=== PATIENT | male | born 1945 | race Caucasian/White ===

== ENCOUNTER 2019-05-02 08:11 | Emergency (ER) | payer MEDICARE, SELFPAY ==
[2019-05-02 08:25] VITALS: BP 169/73; PULSE 68; RESP 18; TEMP 37.5; O2SAT 98
--- NOTE | 2019-05-02 08:29 | ED.GENADULT ---
HPI - General Adult General Chief complaint: Upper Respiratory Infection Stated complaint: Fever,Cough Time Seen by Provider: 05/02/19 08:29 Source: patient Mode of arrival: ambulatory Limitations: no limitations History of Present Illness HPI narrative: 73-year-old male patient presents to the [facility] with complaints of a cough and cold symptoms for the past 4 to 5 days. Patient denies any fevers that he is aware of but states that he thinks he might of been running some low-grade fevers. Patient denies any ear pain. Patient states he has had mild clear nasal discharge. Denies any sore throat. Patient states cough is worse when he is laying down at night. Patient states it is better when he is sitting up in his chair. Denies any chest pain, shortness breath, abdominal pain, nausea, vomiting or diarrhea. Patient states he has been taking [id number] cough medication which has not helped. Related Data Home Medications Medication Instructions Recorded Confirmed citalopram [Celexa] 20 mg PO DAILY 05/02/19 05/02/19 hydrochlorothiazide 12.5 mg PO DAILY 05/02/19 05/02/19 rosuvastatin 5 mg PO DAILY 05/02/19 05/02/19 Allergies Allergy/AdvReac Type Severity Reaction Status Date / Time Penicillins Allergy Mild HIVES Verified 05/02/19 08:33 SULFA Allergy Mild HIVES Uncoded 05/02/19 08:33 Review of Systems Review of Systems: Narrative: CONSTITUTIONAL: Denies fever, chills, or sweats. EYES: Denies visual changes, redness, or discharge. ENT: Positive clear rhinorrhea, congestion, denies sore throat, or otalgia. CARDIOVASCULAR: Denies chest pain, palpitations, or edema. RESPIRATORY: Positive nonproductive cough, denies dyspnea. GASTROINTESTINAL: Denies abdominal pain, nausea, vomiting, or diarrhea. GENITOURINARY: Denies dysuria or hematuria. SKIN: Denies rash or itching. MUSCULOSKELETAL: Denies back pain, joint pain, or myalgia. NEUROLOGIC: Positive headache, denies numbness, or weakness. PSYCHIATRIC: Denies anxiety or depression. [facility] Past Medical History Medical History (Updated 05/02/19 @ 08:36 by QI Oneal) Hypercholesterolemia Hypertension Social History Social History : Male Comments At the time of my signature I agree with nursing past medical history, surgical, social, and family history. There is no relevant family history pertinent to the presenting complaint. Exam Narrative: Exam Narrative: GENERAL: Well-appearing, well-nourished, and in no acute distress. HEAD: Normocephalic, atraumatic. No tenderness noted to frontal and maxillary sinuses on palpation. EYES: PERRLA and EOMI. ENT: Nares with erythema and edema noted bilaterally, no rhinorrhea or epistaxis. Mucous membranes moist. Posterior pharynx with some postnasal drip noted but no tonsil enlargement no exudates or lesions present. Bilateral TMs are clear no erythema or foreign bodies in the canal. NECK: Supple. No lymphadenopathy CHEST: Clear to auscultation. No respiratory distress. HEART: Regular rate and rhythm. No murmur heard. Normal peripheral pulses. ABDOMEN: Soft, nontender, nondistended, normal active bowel sounds. EXTREMITIES: Normal range of motion. No edema. SKIN: Warm, dry, no rash. NEURO: No focal deficits. Alert and oriented x3. Course Vital Signs Vital signs: Vital Signs Temperature 37.5 C 05/02/19 08:25 Pulse Rate 68 05/02/19 08:25 Respiratory Rate 18 05/02/19 08:25 Blood Pressure 169/73 H 05/02/19 08:25 Pulse Oximetry 98 05/02/19 08:25 Temperature 37.5 C 05/02/19 08:25 Pulse Rate 68 05/02/19 08:25 Respiratory Rate 18 05/02/19 08:25 Blood Pressure 169/73 H 05/02/19 08:25 Pulse Oximetry 98 05/02/19 08:25 Vital signs reviewed. The patient has been informed that they may have pre-hypertension or Hypertension based on a BP reading in the department. I recommend that the maeve
== END 2019-05-02 08:40 | disposition home or self-care (01) ==
PROVIDERS: Emergency Provider Nurse Practitioner Family
DX: J06.9 Acute upper respiratory infection, unspecified (principal); E78.00 Pure hypercholesterolemia, unspecified; I10 Essential (primary) hypertension
CPT/HCPCS: 99213; G0463

== ENCOUNTER → 2020-03-19 10:57 | Outpatient (CLI) | payer MEDICARE, SELFPAY ==
--- NOTE | ~2020-03-19 | CT_ITS ---
EXAMINATION: CT brain wo con EXAM DATE: 03/19/2020 11:23 INDICATION: Loss of balance. Abnormalities of gait and mobility, acute neuro deficit. TECHNIQUE: Spiral CT of the head was performed without contrast. Axial, coronal and sagittal images were reviewed. The dose-length product (DLP) for this examination was 599.57 mGy-cm. The exposure w as tailored according to patient size, and iterative reconstruction (ASIR) was used as additional dos e reduction technique. There is no prior study for comparison. FINDINGS: There is no acute intraparenchymal hemorrhage. No evidence of intraparenchymal brain mass lesion. No evidence of acute infarction. Please note that initial head CT has limited sensitivity f or small or acute infarctions. There is mild periventricular and subcortical hypodensity, nonspecific but probably related to small vessel ischemic disease. There is mild prominence of the sulci and v entricles related to cerebral atrophy. There is intracranial carotid arteriosclerosis. There are n o extra-axial collections. There is no mass effect or midline shift. The orbits are unremarkable. Soft tissue is unremarkable. The visualized sinuses and mastoid air cells are well aerated. IMPRESSION: Mild age-related findings. Reviewed, dictated and finalized at location [facility] IMPRESSION: Mild age-related findings.
== END ==
DX: R26.89 Other abnormalities of gait and mobility (principal)
CPT/HCPCS: 70450

== ENCOUNTER 2021-09-09 15:23 | Emergency (ER) | payer MEDICARE, SELFPAY ==
[2021-09-09 15:30] VITALS: BP 153/78; PULSE 51; RESP 18; TEMP 36.3; O2SAT 100
--- NOTE | 2021-09-09 16:00 | ED.BACK ---
HPI - Back Pain/Injury General Chief Complaint: Back Pain/Injury Stated Complaint: low back pain Time Seen by Provider: 09/09/21 16:00 Source: patient Mode of arrival: ambulatory Limitations: no limitations History of Present Illness HPI Narrative: 76-year-old male presented for complaint of left lower back pain for 3 days. He states it feels like muscle pain. He states he had been on a 4 byrd and repetitively looked back behind him while pulling a piece of equipment. The pain started that night. He denies associated numbness, tingling, or weakness of the lower extremity. He has not taken anything for pain. Related Data Home Medications Medication Instructions Recorded Confirmed citalopram 20 mg tablet (Celexa) 20 mg PO DAILY 05/02/19 09/09/21 hydrochlorothiazide 12.5 mg tablet 12.5 mg PO DAILY 05/02/19 09/09/21 rosuvastatin 5 mg tablet 5 mg PO DAILY 05/02/19 09/09/21 empagliflozin 10 mg tablet 10 mg PO DAILY 06/17/20 09/09/21 (Jardiance) metformin 500 mg tablet 500 mg PO BID 06/17/20 09/09/21 metoprolol succinate 50 mg 50 mg PO DAILY 06/17/20 09/09/21 tablet,extended release 24 hr sitagliptin 100 mg tablet (Januvia) 100 mg PO DAILY 06/17/20 09/09/21 omega-3 acid ethyl esters 1 gram 1 cap PO DAILY 09/09/21 09/09/21 capsule Allergies Allergy/AdvReac Type Severity Reaction Status Date / Time Penicillins Allergy Mild HIVES Verified 09/09/21 15:26 SULFA Allergy Mild HIVES Uncoded 09/09/21 15:26 Review of Systems Review of Systems: CONSTITUTIONAL: Denies body aches, fever, chills, or sweats. CARDIOVASCULAR: Denies chest pain, palpitations, or edema. RESPIRATORY: Denies cough or dyspnea. GASTROINTESTINAL: Denies abdominal pain, nausea, vomiting, or diarrhea. GENITOURINARY: Denies dysuria or hematuria. SKIN: Denies rash, itching, or wounds. MUSCULOSKELETAL: Reports back pain NEUROLOGIC: Denies headache, numbness, tingling, or weakness. All systems reviewed & are unremarkable except as noted in HPI and below PMFSH Past Medical History Medical History Hypercholesterolemia Hypertension Social History Social History Smoking status: Never smoker Alcohol intake: current Drinks per week: 4 Substance use: never Gender identity (if verbalized by the patient): Male Comments At time of signature, I have reviewed and agree with nursing past medical, surgical, social and family history unless otherwise noted. Please see nursing chart for further information. There is no relevant family history pertinent to the presenting complaint Exam Narrative: GENERAL: Well-appearing, well-nourished, and in no acute distress. CHEST: No respiratory distress. Clear to auscultation. HEART: Regular rate and rhythm. No murmur appreciated. Normal peripheral pulses. ABDOMEN: Soft, nontender, nondistended, normal active bowel sounds. MUSCULOSKELETAL: No vertebral point tenderness. 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 No edema. SKIN: Warm, dry, no rash. Capillary refill normal. Normal skin turgor. NEURO: No focal deficits. Alert and oriented x3. Gait steady. Course Course Emergency Course: Patient is aware of diagnosis, understands and agrees to treatment plan. Anticipatory guidance given. Patient agrees to follow-up as directed and is aware of reasons to seek care at the emergency department. Portions of this record may have been created with voice recognition software Level of Care: Express Care Visit Vital Signs Vital signs: Vital Signs Temperature 97.3 F L 09/09/21 15:30 Pulse Rate 51 L 09/09/21 15:30 Respiratory Rate 18 09/09/21 15:30 Blood Pressure 153/78 H 09/09/21 15:30 Pulse Oximetry 100 09/09/21 15:30 Oxygen Delivery Room Air 09/09/21 15:30 Temperature 97.3 F L 09/09/21 15:30 Pulse Rate 51 L 09/09/21 15:30 Re
== END 2021-09-09 16:12 | disposition home or self-care (01) ==
PROVIDERS: Emergency Provider Nurse Practitioner Family
DX: S39.012A Strain of muscle, fascia and tendon of lower back, initial encounter (principal); X50.3XXA Overexertion from repetitive movements, initial encounter; E78.00 Pure hypercholesterolemia, unspecified; I10 Essential (primary) hypertension
CPT/HCPCS: 99213; G0463

== ENCOUNTER 2021-10-02 10:03 | Emergency (ER) | payer MEDICARE, SELFPAY ==
[2021-10-02 10:18] VITALS: PULSE 61; RESP 18; TEMP 36.8; O2SAT 100
--- NOTE | 2021-10-02 10:27 | ED.EAR ---
HPI - Ear Problem General Chief complaint: Ear Stated complaint: right ear infected Time Seen by Provider: 10/02/21 10:27 History of Present Illness HPI Narrative: Gerry Cornelius is a 76 yo male with a PMH of high blood pressure high cholesterol, diabetes, comes with right ear draining and swelling; states this been going on for couple days has not been swimming pool Related Data Home Medications Medication Instructions Recorded Confirmed citalopram 20 mg tablet (Celexa) 20 mg PO DAILY 05/02/19 10/02/21 hydrochlorothiazide 12.5 mg tablet 12.5 mg PO DAILY 05/02/19 10/02/21 rosuvastatin 5 mg tablet 5 mg PO DAILY 05/02/19 10/02/21 empagliflozin 10 mg tablet 10 mg PO DAILY 06/17/20 10/02/21 (Jardiance) metformin 500 mg tablet 500 mg PO BID 06/17/20 10/02/21 metoprolol succinate 50 mg 50 mg PO DAILY 06/17/20 10/02/21 tablet,extended release 24 hr sitagliptin 100 mg tablet (Januvia) 100 mg PO DAILY 06/17/20 10/02/21 omega-3 acid ethyl esters 1 gram 1 cap PO DAILY 09/09/21 10/02/21 capsule Allergies Allergy/AdvReac Type Severity Reaction Status Date / Time Penicillins Allergy Mild HIVES Verified 09/09/21 15:26 SULFA Allergy Mild HIVES Uncoded 09/09/21 15:26 Review of Systems Review of Systems: CONSTITUTIONAL: Denies fever, chills, sweats. EYES: Denies visual changes, redness, discharge. ENT: Denies rhinorrhea, congestion, sore throat, right otalgia with drainage CARDIOVASCULAR: Denies chest pain, palpitations, edema. RESPIRATORY: Denies dyspnea, wheezing, cough GASTROINTESTINAL: Denies abdominal pain, nausea, vomiting, diarrhea. GENITOURINARY: Denies dysuria, hematuria, abnormal discharge SKIN: Denies rash or itching. NEUROLOGIC: Denies numbness, or focal weakness. PSYCHIATRIC: Denies anxiety or depression. [facility] Past Medical History Medical History Diabetes Hypercholesterolemia Hypertension Social History Social History (Updated 10/02/21 @ 10:32 by Zita Kc CNP) Smoking status: Former smoker Alcohol intake: current Drinks per week: 4 Substance use: never Gender identity (if verbalized by the patient): Male Comments At time of signature, I agree with nursing past medical, surgical, social and family history. There is no relevant family history pertinent to the presenting complaint. Exam Narrative: GENERAL: This is a well-nourished, well-developed patient, in mild distress. HEAD: normocephalic, atraumatic. EYES: Sclera clear/white. Vision is grossly intact. EARS: External ears normal, auditory canals clear on L, right swollen and very tender with yellow darinage, unable caro visualize TM. Hearing grossly intact. NOSE: External nose normal without nasal discharge, nares without redness, no rhinorrhea. THROAT: Mucous membranes moist, NECK: Neck supple, non-tender CARDIOVASCULAR: Regular rate and rhythm without murmurs, gallops, or rubs. RESPIRATORY: Clear to auscultation. Breath sounds equal bilaterally. No wheezes, rales, or rhonchi. GASTROINTESTINAL: Not done SKIN: warm, intact with no suspicious lesions or rash, good texture and turgor. NEURO: awake, alert, and oriented to person, place and time. There were no obvious focal neurologic abnormalities. Steady gait EXTREMITIES: Normal range of motion. BACK: Nontender without deformity Course Course Emergency Course: Patient here with right ear pain with drainage, started a few days ago has not had any swimming, has had history of cerumen in ears Right ear is swollen, tender, and draining yellow drainage unable to visualize TM started on antibiotic eardrops with steroids Can reassess here if congestion continues Level of Care: Express Care Visit Vital Signs Vital signs: Vital Signs Temperature 98.3 F 10/02/21 10:18 Pulse Rate 61 10/02/21 10:18 Respiratory Rate 18 10/02/21 10:18 Pulse Oximetry 100 10/02/21 10:18 Oxygen Delivery Room Air 10/02/21 10:18
[2021-10-02 10:33] VITALS: BP 140/82
== END 2021-10-02 10:43 | disposition home or self-care (01) ==
PROVIDERS: Emergency Provider Nurse Practitioner
DX: H66.001 Acute suppurative otitis media without spontaneous rupture of ear drum, right ear (principal); Z87.891 Personal history of nicotine dependence; E11.9 Type 2 diabetes mellitus without complications; E78.00 Pure hypercholesterolemia, unspecified; I10 Essential (primary) hypertension
CPT/HCPCS: 99213; G0463

== ENCOUNTER 2023-07-26 10:24 | Emergency (ER) | payer MEDICARE, SELFPAY ==
--- NOTE | 2023-07-26 10:55 | ED.URI ---
HPI - URI/Sore Throat General Chief Complaint: Upper Respiratory Infection Stated Complaint: Sinus/Weakness Time Seen by Provider: 07/26/23 10:54 Source: patient and RN notes reviewed Mode of arrival: ambulatory Limitations: no limitations History of Present Illness HPI Narrative: 78-year-old male presents with concern for cough, chest congestion, rib pain when coughing. Reports he gets lightheaded from cough. He reports lightheadedness when he stands up from sitting. He denies dizziness, headache, weakness in any extremity. Reports history of vertigo. He reports he took [id number] cough medicine without relief. He denies fever, aches, chills, sweats. MD elicited complaint: sore throat Related Data Home Medications Medication Instructions Recorded Confirmed citalopram 20 mg tablet (Celexa) 20 mg PO DAILY 05/02/19 07/26/23 hydrochlorothiazide 12.5 mg tablet 12.5 mg PO DAILY 05/02/19 07/26/23 rosuvastatin 5 mg tablet 5 mg PO DAILY 05/02/19 07/26/23 metformin 500 mg tablet 500 mg PO BID 06/17/20 07/26/23 metoprolol succinate 50 mg 50 mg PO DAILY 06/17/20 07/26/23 tablet,extended release 24 hr sitagliptin phosphate 100 mg 100 mg PO DAILY 06/17/20 07/26/23 tablet (Januvia) omega-3 acid ethyl esters 1 gram 1 cap PO DAILY 09/09/21 07/26/23 capsule empagliflozin 10 mg tablet 10 mg PO DAILY 07/15/22 07/26/23 (Jardiance) alprazolam 0.5 mg tablet 0.5 mg PO DAILY 07/26/23 07/26/23 amlodipine 10 mg tablet 10 mg PO DAILY 07/26/23 07/26/23 aspirin 81 mg chewable tablet 81 mg PO DAILY 07/26/23 07/26/23 losartan 100 mg tablet 0.5 mg PO TID 07/26/23 07/26/23 Allergies Allergy/AdvReac Type Severity Reaction Status Date / Time Penicillins Allergy Mild HIVES Verified 07/26/23 10:32 SULFA Allergy Mild HIVES Uncoded 07/26/23 10:32 Review of Systems Review of Systems: CONSTITUTIONAL: Denies malaise, chills, sweats, or fever. EYES: Denies visual changes, redness, or discharge. ENT: Reports rhinorrhea. Denies congestion, sinus pain, otalgia and sore throat. CARDIOVASCULAR: Denies chest pain, palpitations, or edema. RESPIRATORY: Reports productive cough. Denies dyspnea. GASTROINTESTINAL: Denies abdominal pain, nausea, vomiting, diarrhea SKIN: Denies rash or itching. MUSCULOSKELETAL: Denies myalgia. Reports rib pain with coughing NEUROLOGIC: Denies headache. All systems reviewed & are unremarkable except as noted in HPI and below PMFSH Past Medical History Medical History Diabetes Hypercholesterolemia Hypertension Social History Social History Smoking status: Former smoker Alcohol intake: current Drinks per week: 4 Substance use: never Lack of Transportation: No Lack of Food: Never True Current Housing: I Have Housing Concerned About Future Housing: No Difficulty Paying Gas/Electric Bills: No Difficulty Paying for Meds: No Currently Unemployed: Decline to Answer Education: Trade/Vocational Certificate Difficulty w/ Childcare or Family Care: No Gender identity (if verbalized by the patient): Male Comments At time of signature, agree with nursing past medical, surgical, social and family history. There is no relevant family history pertinent to the presenting complaint Exam Narrative: GENERAL: Well-appearing, well-nourished, and in no acute distress. HEAD: Normocephalic EYES: PERRLA, conjunctivae clear ENT: Nares clear, clear discharge. Mucous membranes moist. TM pearly rodriguez with dull light reflex bilaterally; no tragal tenderness. Oropharynx not erythematous without lesions. Tonsils not enlarged and without exudate, no drooling, no hoarseness, no trismus, uvula midline. NECK: Supple. No lymphadenopathy. No carotid bruits CHEST: Clear to auscultation, breath sounds equal. No wheezing, rhonchi, rales, or stridor. No respiratory distress, speaks in full sentences. HEART
[2023-07-26 11:03] VITALS: BP 127/57; PULSE 60; RESP 97; TEMP 37.7; O2SAT 97
== END 2023-07-26 11:05 | disposition home or self-care (01) ==
PROVIDERS: Emergency Provider Nurse Practitioner; PCP Internal Medicine
DX: J06.9 Acute upper respiratory infection, unspecified (principal); Z87.891 Personal history of nicotine dependence; E11.9 Type 2 diabetes mellitus without complications; E78.00 Pure hypercholesterolemia, unspecified; I10 Essential (primary) hypertension
CPT/HCPCS: 99213; G0463

== ENCOUNTER 2023-08-09 11:38 | Emergency (ER) | payer MEDICARE, SELFPAY ==
--- NOTE | 2023-08-09 11:40 | ED.EXTPRO ---
HPI - Extremity Problem General Chief complaint: Extremity Problem,Nontraumatic Stated complaint: painful right wrist Time Seen by Provider: 08/09/23 12:34 Source: patient, RN notes reviewed and old records reviewed Mode of arrival: ambulatory Limitations: no limitations History of Present Illness HPI Narrative: 78-year-old male presents to the [facility] with complaints of right wrist pain for 2 days. Patient states it feels like his gout. Patient reports a history of gout. Areas swollen. Denies any injury. Patient reports that he normally gets stronger pain medicine than ibuprofen as well as a steroid pack. Patient has decreased range of motion of the wrist due to pain. Positive radial pulse. Able to palpate ulnar pulse. Capillary refill under 2 seconds. Sensation intact. Onset (ago): day(s) (2) Related Data Home Medications Medication Instructions Recorded Confirmed citalopram 20 mg tablet (Celexa) 20 mg PO DAILY 05/02/19 08/09/23 hydrochlorothiazide 12.5 mg tablet 12.5 mg PO DAILY 05/02/19 08/09/23 rosuvastatin 5 mg tablet 5 mg PO DAILY 05/02/19 08/09/23 metformin 500 mg tablet 500 mg PO BID 06/17/20 08/09/23 metoprolol succinate 50 mg 50 mg PO DAILY 06/17/20 08/09/23 tablet,extended release 24 hr sitagliptin phosphate 100 mg 100 mg PO DAILY 06/17/20 08/09/23 tablet (Januvia) omega-3 acid ethyl esters 1 gram 1 cap PO DAILY 09/09/21 08/09/23 capsule empagliflozin 10 mg tablet 10 mg PO DAILY 07/15/22 08/09/23 (Jardiance) alprazolam 0.5 mg tablet 0.5 mg PO DAILY 07/26/23 08/09/23 amlodipine 10 mg tablet 10 mg PO DAILY 07/26/23 08/09/23 aspirin 81 mg chewable tablet 81 mg PO DAILY 07/26/23 08/09/23 losartan 100 mg tablet 0.5 mg PO TID 07/26/23 08/09/23 Allergies Allergy/AdvReac Type Severity Reaction Status Date / Time Penicillins Allergy Mild HIVES Verified 08/09/23 12:46 Sulfa (Sulfonamide Allergy Hives Verified 08/09/23 12:47 Antibiotics) Review of Systems Review of Systems: All systems reviewed & are unremarkable except as noted in HPI and below Constitutional: Constitutional: Reports no additional constitutional complaints Eyes: Eyes: Reports no additional eye complaints ENT: Reports system reviewed and no additional complaints, except as documented Cardiovascular: Cardiovascular: Reports no additional cardiovascular complaints, Denies chest pain and Denies dyspnea Respiratory: Respiratory: Reports no additional respiratory complaints, Denies chest congestion, Denies cough and Denies dyspnea Gastrointestinal: Gastrointestinal: Reports no additional gastrointestinal complaints, Denies abdominal pain, Denies nausea and Denies vomiting Musculoskeletal: Musculoskeletal: Reports as per HPI Integumentary/Breasts: Skin/Breast: Reports system reviewed and no additional complaints, except as docu Neurologic: Reports system reviewed and no additional complaints, except as documented Psychiatric: Psychiatric: Reports no additional psychiatric complaints Allergic/Immunologic: Allergic/Immunologic: Reports no additional allergic/immunologic complaints [facility] Past Medical History Medical History Diabetes Hypercholesterolemia Hypertension Social History Social History Smoking status: Former smoker Alcohol intake: current Drinks per week: 4 Substance use: never Lack of Transportation: No Lack of Food: Never True Current Housing: I Have Housing Concerned About Future Housing: No Difficulty Paying Gas/Electric Bills: No Difficulty Paying for Meds: No Currently Unemployed: Decline to Answer Education: Trade/Vocational Certificate Difficulty w/ Childcare or Family Care: No Gender identity (if verbalized by the patient): Male Comments At the time of my signature, I reviewed and agree with the nursing past medical, surgical, social, and family history. There
[2023-08-09 11:45] VITALS: BP 127/51; PULSE 55; RESP 16; TEMP 36.4; O2SAT 97
== END 2023-08-09 12:54 | disposition home or self-care (01) ==
PROVIDERS: Emergency Provider Nurse Practitioner; PCP Internal Medicine
DX: M25.531 Pain in right wrist (principal); M10.9 Gout, unspecified; E11.9 Type 2 diabetes mellitus without complications; Z79.84 Long term (current) use of oral hypoglycemic drugs; E78.00 Pure hypercholesterolemia, unspecified; I10 Essential (primary) hypertension; Z87.891 Personal history of nicotine dependence; Z79.82 Long term (current) use of aspirin
CPT/HCPCS: 99213; G0463

== ENCOUNTER 2023-11-10 08:24 | Emergency (ER) | payer MEDICARE, SELFPAY ==
--- NOTE | ~2023-11-10 | XR_ITS ---
EXAMINATION: XR hand LT min 3V DATE: 11/10/2023 08:51 INDICATION: Left hand pain and swelling. Fall. TECHNIQUE: 4 views of left hand were obtained. COMPARISON: None. FINDINGS: Bone alignment is normal. No fracture. There is mild osteoarthritis of first carpometacarpa l joint, second metacarpophalangeal joint, and some of the interphalangeal joints. There is moderate osteoarthritis of first interphalangeal joint. IMPRESSION: 1. Polyarticular osteoarthritis. Reviewed, dictated and finalized at location A.
[2023-11-10 08:27] VITALS: BP 167/65; PULSE 70; RESP 16; TEMP 36.7; O2SAT 100
--- NOTE | 2023-11-10 09:18 | ED.FALL ---
HPI - Fall General Chief Complaint: Fall Stated Complaint: fall 1 week ago Time Seen by Provider: 11/10/23 08:41 History of Present Illness HPI Narrative: 78-year-old male presenting to the emergency department for evaluation for left hand pain. Patient reports he had a fall last week resulting in a facial injury and left hand injury. Patient states he has not been taking Tylenol or ibuprofen for pain control at home. Patient states he does have gout. Patient presents to ED complaining of persistent left hand pain. Patient does have abrasion to his face. Patient denies any loss of consciousness from the fall. Related Data Home Medications Medication Instructions Recorded Confirmed citalopram 20 mg tablet (Celexa) 20 mg PO DAILY 05/02/19 08/09/23 hydrochlorothiazide 12.5 mg tablet 12.5 mg PO DAILY 05/02/19 08/09/23 rosuvastatin 5 mg tablet 5 mg PO DAILY 05/02/19 08/09/23 metformin 500 mg tablet 500 mg PO BID 06/17/20 08/09/23 metoprolol succinate 50 mg 50 mg PO DAILY 06/17/20 08/09/23 tablet,extended release 24 hr sitagliptin phosphate 100 mg 100 mg PO DAILY 06/17/20 08/09/23 tablet (Januvia) omega-3 acid ethyl esters 1 gram 1 cap PO DAILY 09/09/21 08/09/23 capsule empagliflozin 10 mg tablet 10 mg PO DAILY 07/15/22 08/09/23 (Jardiance) alprazolam 0.5 mg tablet 0.5 mg PO DAILY 07/26/23 08/09/23 amlodipine 10 mg tablet 10 mg PO DAILY 07/26/23 08/09/23 aspirin 81 mg chewable tablet 81 mg PO DAILY 07/26/23 08/09/23 losartan 100 mg tablet 0.5 mg PO TID 07/26/23 08/09/23 Allergies Allergy/AdvReac Type Severity Reaction Status Date / Time Penicillins Allergy Mild HIVES Verified 11/10/23 08:29 Sulfa (Sulfonamide Allergy Hives Verified 11/10/23 08:29 Antibiotics) Review of Systems Review of Systems: All systems reviewed & are unremarkable except as noted in HPI and below PMFSH Past Medical History Medical History Diabetes Hypercholesterolemia Hypertension Social History Social History Smoking status: Former smoker Alcohol intake: current Drinks per week: 4 Substance use: never Lack of Transportation: No Lack of Food: Never True Current Housing: I Have Housing Concerned About Future Housing: No Difficulty Paying Gas/Electric Bills: No Difficulty Paying for Meds: No Currently Unemployed: Decline to Answer Education: Trade/Vocational Certificate Difficulty w/ Childcare or Family Care: No Gender identity (if verbalized by the patient): Male Exam Narrative: APPEARANCE: Well appearing, no pain, no distress, well-nourished. HEAD: normocephalic, atraumatic. EYES: PERRLA/EOMI, conjunctivae clear. NOSE: Normal no drainage EARS:TMS clear with good light reflex. THROAT: Pharynx clear, no exudate. NECK: Supple. No adenopathy, no masses. RESPIRATORY: Airway patent, respirations nonlabored. Clear to auscultation bilaterally, no rales, rhonchi, wheezing. CARDIOVASCULAR: Regular rate and rhythm without murmurs rubs or gallops. ABDOMINAL: Soft, nontender, nondistended, normal bowel sounds MUSCULOSKELETAL: Hand contusion NEURO: Alert. Cranial nerves II through XII intact. Grossly intact SKIN: Warm, dry. Normal Color Course Vital Signs Vital signs: Vital Signs Temperature 98.1 F 11/10/23 08:27 Pulse Rate 70 11/10/23 08:27 Respiratory Rate 16 11/10/23 08:27 Blood Pressure 167/65 H 11/10/23 08:27 Pulse Oximetry 100 11/10/23 08:27 Oxygen Delivery Room Air 11/10/23 08:27 Temperature 98.1 F 11/10/23 08:27 Pulse Rate 87 11/10/23 09:36 Respiratory Rate 14 11/10/23 09:36 Blood Pressure 130/86 11/10/23 09:36 Pulse Oximetry 99 11/10/23 09:36 Oxygen Delivery Room Air 11/10/23 08:27 MDM - Fall MDM Narrative Medical decision making narrative: 78-year-old male present to the emergency department for evaluation for left hand
[2023-11-10 09:36] VITALS: BP 130/86; PULSE 87; RESP 14; O2SAT 99
== END 2023-11-10 09:37 | disposition home or self-care (01) ==
PROVIDERS: Emergency Provider Emergency Medicine; PCP Internal Medicine
DX: S60.222A Contusion of left hand, initial encounter (principal); E11.9 Type 2 diabetes mellitus without complications; Z79.4 Long term (current) use of insulin; E78.5 Hyperlipidemia, unspecified; I10 Essential (primary) hypertension; W19.XXXA Unspecified fall, initial encounter
CPT/HCPCS: 73130; 99283

== ENCOUNTER 2024-02-27 07:17 | Emergency (ER) | payer MEDICARE, SELFPAY ==
--- NOTE | ~2024-02-27 | CT_ITS ---
EXAMINATION: CT soft tissue neck w con DATE: 02/27/2024 08:27 INDICATION: Peritonsillar abscess. TECHNIQUE: Computed tomography (CT) of the neck was performed with 75 mL Omnipaque-350 intravenous co ntrast. Automated exposure control and iterative reconstruction technique were employed. The dose-booker gth product was 477.88 mGy-cm. COMPARISON: None FINDINGS: There is mucosal thickening in the paranasal sinuses. There is enlargement of the palatine tonsils, right worse than left. There is a 7 mm low-attenuation mass in the right palatine tonsil, co nsistent with abscess. There is an aberrant right subclavian artery. There are no pathologically enla rged lymph nodes. There is severe cervical spondylosis. IMPRESSION: 1. Enlarged palatine tonsils with 7 mm right peritonsillar abscess. Reviewed, dictated and finalized at location A. [employer]
[2024-02-27 07:25] VITALS: BP 155/75; PULSE 81; RESP 18; TEMP 36.5; O2SAT 99
[2024-02-27 07:27] VITALS: O2SAT 99
--- NOTE | 2024-02-27 07:53 | ED.URI ---
HPI - URI/Sore Throat General Chief Complaint: Upper Respiratory Infection Stated Complaint: cough, sore throat Time Seen by Provider: 02/27/24 07:33 Source: patient Mode of arrival: ambulatory Limitations: no limitations History of Present Illness HPI Narrative: Patient presents with a sore throat and cough as well as pain with swallowing. He notes that his symptoms started it started with a sore throat then became cough. He has noticed that his voice is slightly muffled. The pain in his throat is on the right side. He denies any fevers, shortness of breath, tongue or dental pain. He denies any underlying respiratory conditions. He is concern for a right ear infection given he has a history of recurrent problems in this ear he denies any pain in either ear today. He states as long as I just get some cough syrup I'll be ok. He states that [id number] cough medicines do not work and so he tried some leftover prescription cough medicine he had been given previously but there was only a little bit left. He also tried a shot of whiskey.. Related Data Home Medications Medication Instructions Recorded Confirmed citalopram 20 mg tablet (Celexa) 20 mg PO DAILY 05/02/19 11/18/23 hydrochlorothiazide 12.5 mg tablet 12.5 mg PO DAILY 05/02/19 11/18/23 rosuvastatin 5 mg tablet 5 mg PO DAILY 05/02/19 11/18/23 metformin 500 mg tablet 500 mg PO BID 06/17/20 11/18/23 metoprolol succinate 50 mg 50 mg PO DAILY 06/17/20 11/18/23 tablet,extended release 24 hr sitagliptin phosphate 100 mg 100 mg PO DAILY 06/17/20 11/18/23 tablet (Januvia) omega-3 acid ethyl esters 1 gram 1 cap PO DAILY 09/09/21 11/18/23 capsule empagliflozin 10 mg tablet 10 mg PO DAILY 07/15/22 11/18/23 (Jardiance) alprazolam 0.5 mg tablet 0.5 mg PO DAILY 07/26/23 11/18/23 amlodipine 10 mg tablet 10 mg PO DAILY 07/26/23 11/18/23 aspirin 81 mg chewable tablet 81 mg PO DAILY 07/26/23 11/18/23 losartan 100 mg tablet 0.5 mg PO TID 07/26/23 11/18/23 Allergies Allergy/AdvReac Type Severity Reaction Status Date / Time Penicillins Allergy Mild HIVES Verified 02/27/24 07:28 Sulfa (Sulfonamide Allergy Hives Verified 02/27/24 07:28 Antibiotics) [facility] Past Medical History Medical History Diabetes Hypercholesterolemia Hypertension Social History Social History Smoking status: Former smoker Alcohol intake: current Drinks per week: 4 Substance use: never Lack of Transportation: No Lack of Food: Never True Current Housing: I Have Housing Concerned About Future Housing: No Difficulty Paying Gas/Electric Bills: No Difficulty Paying for Meds: No Currently Unemployed: Decline to Answer Education: Trade/Vocational Certificate Difficulty w/ Childcare or Family Care: No 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 HEAD: Normocephalic, atraumatic. EYES: Non injected, non icteric ENT: Nares clear, no rhinorrhea or epistaxis. No trismus. Patient has right tonsillar swelling and a deviated uvula and speaks with a muffled voice. Cerumen in bilateral auditory canals although bilateral tympanic membranes are visualized without effusion/erythema/bulging. Tonsils are otherwise not kissing NECK: Supple. No submandibular fullness. Patent airway. No stridor. CHEST: Speaking in full sentences. No respiratory distress. HEART: Regular rate and rhythm. . ABDOMEN: Soft, nondistended. EXTREMITIES: Normal range of motion. No lower extremity edema. SKIN: Warm, dry, no rash. NEURO: No focal deficits. Alert and oriented x3. The tongue protrudes midline without deviation. PSYCH: Normal mood and affect. Course Vital Signs Vital signs: Vital Signs Temperature 97.7 F 02/27/24 07:25 Pulse Rate 81 02/27/24 07:25 Respiratory Rate 18 02/27/24 07:25 Blood Pressure 155/75 H 02/27/24 07:25 Pulse Oximetry 99 02/27/24 07:25 Oxygen Delivery Room Air 02/27/24 07:25 Temperature 97.7 F 02/27/24 07:25 Pulse Rate 65 02/27/24 09:09 Respiratory Rate 18 02/27/24 09:09 Blood Pressure 129/59 L 02/27/24 09:09 Pulse Oximetry 98 02/27/24 09:09 Oxygen Delivery Room Air 02/27/24 07:27 MDM - URI/Sore Throat MDM Narrative Medical decision making narrative: Patient presents with sore throat and cough as well as pain with swallowing and he has been experiencing these symptoms since . He has also developed a muffled voice. In the emergency department he is afebrile with vital signs notable for hypertension. I am concerned about a peritonsillar abscess based on his symptoms including muffled voice and the fact that on physical exam he does have right tonsillar swelling with uvula deviation. Steroids, NSAID, and 1st dose of antibiotic ordered. Patient is then get analgesic medication and glycopyrrolate. Needle Aspiration - Procedure Note Risks/benefits discussed with patient who provided verbal consent. Patient held suction and used as needed Mac 3 laryngoscope used as tongue depressor and light source 2mL of lidocaine injected into mucosa of anterior tonsillar pillar using 25 gauge needle Distal tip off needle sheath cut off and place over 18ga needle to expose 1 cm of needle to prevent accidentally plunging deeper than desired. Aspirate using 18 gauge needle just lateral to the tonsil. First tried superior then middle then inferior poles. Scant bloody/fluid drainage. Patient tolerated procedure well without any complications. Patient discharged home in stable condition. He is provided the rest of the course of his prescription for antibiotics and encouraged to take this entire course, follow-up with ear nose and throat/Otolaryngology (contact information provided) and he is also given very strict emergency department return precautions. He verifies understanding. He is also provided prescriptions for medications for symptom management such as [id number] analgesics medications as well as lozenges and cough medicine. Discharged home stable condition Differential Diagnosis Differential diagnosis: Likely upper respiratory infection, otitis media, sinusitis, viral infection, influenza, pharyngitis and other (Peritonsillar abscess, retropharyngeal abscess) Lab Data Attestation: I reviewed the patient's lab results. Lab results narrative: Hyperglycemia without anion gap acidosis. Partial pseudo hyponatremia as it corrects to 135-136 in the setting of hyperglycemia 02/27/24 08:35 02/27/24 08:35 Labs: Lab Results 02/27/24 02/27/24 02/27/24 Range/Units 07:39 08:21 08:35 WBC 8.1 (4.5-10.0) K/mm3 RBC 4.58 L (4.6-6.20) M/mm3 Hgb 14.2 (14.0-18.0) g/dL Hct 42.1 (42.0-52.0) % MCV 91.9 (80-100) fl MCH 31.0 (26-34) pg MCHC 33.7 (32-36) g/dl RDW 12.9 (11.5-14.5) % Plt Count 208 (150-375) k/mm3 MPV 9.6 (7.4-10.4) fl Immature Gran % (Auto) 0.4 (0-0.5) % Neut % (Auto) 64.0 (45.5-73.1) % Lymph % (Auto) 15.6 L (18.3-44.2) % Perry % (Auto) 16.0 H (2.6-8.5) % Eos % (Auto) 3.0 (0-4.4) % Baso % (Auto) 1.0 (0.2-1.2) % Lymph # (Auto) 1.26 (0.9-3.2) K/mm3 Perry # (Auto) 1.3 H (0.1-0.6) K/mm3 Eos # (Auto) 0.2 (0-0.3) K/mm3 Baso # (Auto) 0.1 (0.0-0.1) K/mm3 Abs Immat Gran (auto) 0.03 (0.00-0.031) K/mm3 Absolute Neuts (auto) 5.2 (1.3-6.7) K/mm3 Absolute Nucleated RBC 0.000 (0.0-0.012) K/mm3 Nucleated RBC % 0.0 (0.0-0.2) % Sodium 134 L (137-145) mmol/L Potassium 3.5 (3.4-5.0) mmol/L Chloride 98 (98-107) mmol/L Carbon Dioxide 28 (22-30) mmol/L Anion Gap 8 (4-12) mmol/L BUN 20 (9-20) mg/dL Creatinine 1.20 1.10 (0.8-1.5) mg/dL Estim Creat Clear Calc 45 49 ml/min Estimated GFR 59 > 60 (59 - ) Glucose 163 H (65-110) mg/dL Calcium 8.9 (8.4-10.2) mg/dL Influenza A (RT-PCR) Negative (Negative) Influenza B (RT-PCR) Negative (Negative) RSV (RT-PCR) Negative (Negative) SARS-CoV-2 RNA (RT-PCR) Negative (Negative) Group A Strep (PCR) Not detected (Negative) Imaging Data Radiologist's impression: Impressions Soft Tissue Neck CT 02/27/24 08:30 IMPRESSION: 1. Enlarged palatine tonsils with 7 mm right peritonsillar abscess. Discharge Plan Discharge Clinical Impression: Abscess, peritonsillar, Hypertrophy of palatine tonsil, Hyperglycemia, Cough Patient Disposition: Home, Self-Care Condition: Stable Instructions: Antibiotic Form, Peritonsillar Abscess (DC), Acute Cough (ED) Additional Instructions: you can use the combination of the cough medicine and lozenges for sore throat to help with your symptoms but it is also important that you take the entire course of the antibiotic prescribed. You received your 1st dose in the emergency department. Follow-up with the ear nose and throat doctor (ENT)/ bistro attendant listed below. Return to the emergency department with any new or worsening symptoms such as concern for dehydration, inability to maintain your hydration, continued pain despite medication, inability to open your mouth, shortness of breath/difficulty breathing, fever >100.4F, etc.. Acetaminophen/Tylenol (maximum 4000 mg per day) is safe to take with NSAIDs (ibuprofen/Motrin) for pain relief. Prescriptions: New Cepacol Sore Throat (mishel-men) 15-2.6 mg lozenge 1 benita mucous membrane Q2-4H PRN (Reason: sore throat) Qty: 16 0RF benzonatate 100 mg capsule 100 mg PO BID PRN (Reason: cough) Qty: 20 0RF clindamycin HCl 300 mg capsule 300 mg PO Q6H 8 Days Qty: 32 0RF acetaminophen 500 mg capsule 1,000 mg PO Q6H PRN (Reason: pain) Qty: 30 0RF ibuprofen 600 mg tablet 600 mg PO TID PRN (Reason: pain) Qty: 30 0RF No Action alprazolam 0.5 mg tablet 0.5 mg PO DAILY amlodipine 10 mg tablet 10 mg PO DAILY losartan 100 mg tablet 0.5 mg PO TID aspirin [Aspirin Child] 81 mg Tablet,Chewable 81 mg PO DAILY methylprednisolone [Medrol (Aleksandar)] 4 mg tablets,dose pack See Rx Instructions PO .COMPLEX Qty: 21 0RF Rx Instructions: orally per package directions citalopram [Celexa] 20 mg Tablet 20 mg PO DAILY rosuvastatin 5 mg Tablet 5 mg PO DAILY hydrochlorothiazide 12.5 mg Tablet 12.5 mg PO DAILY omega-3 acid ethyl esters 1 gram capsule 1 cap PO DAILY Jardiance 10 mg tablet 10 mg PO DAILY metformin 500 mg tablet 500 mg PO BID metoprolol succinate 50 mg tablet extended release 24 hr 50 mg PO DAILY Januvia 100 mg tablet 100 mg PO DAILY hydrocodone-acetaminophen 5-325 mg tablet 1 tablet PO Q12H PRN (Reason: pain) Qty: 10 0RF Follow-up/Referrals: Ken Lo MD [Physician] - ( ear nose throat) Ruby,Donell Vasquez MD [Primary Care Provider] - Stand Alone Forms: Work/School Release IP Time of Disposition: 09:54
[2024-02-27 08:23] LABS: Estimated CRCL calculation 45 ml/min; Estimated Glomerular Filt Rate 59
[2024-02-27 08:29] LABS: Strep Group A RT-PCR NOT DETECTED (Negative)
[2024-02-27] MEDS: CLINDAMYCIN 600 MG/D5W 50 ML 600 MG/50 ML PIGGYBACK 100 MG IVPB (08:32)
[2024-02-27] MEDS: dexAMETHasone SOD PHOS INJ 10 MG/ML 1 ML VIAL IV PUSH (08:32)
[2024-02-27] MEDS: KETOROLAC 15 MG/ML VIAL (*BKC) IV PUSH (08:32)
[2024-02-27 08:41] LABS: Influenza A QL RT-PCR Negative (Negative); Influenza B QL RT-PCR Negative (Negative); RSV RNA, RT-PCR Negative (Negative); SARS-CoV-2 RNA PCR Negative (Negative)
[2024-02-27 08:47] LABS: Basophils Absolute Auto 0.1 K/mm3 (0.0-0.1); Eosinophils Absolute Auto 0.2 K/mm3 (0-0.3); Hematocrit 42.1 % (42.0-52.0); Hemoglobin 14.2 g/dL (14.0-18.0); Immature Granulocyte Absolute 0.03 K/mm3 (0.00-0.031); Immature Granulocyte Percent A 0.4 % (0-0.5); Lymphocytes Absolute Auto 1.26 K/mm3 (0.9-3.2); Lymphocytes Percent Auto 15.6 % (18.3-44.2); Mean Corpuscular HGB Conc 33.7 g/dl (32-36); Mean Corpuscular Volume 91.9 fl (80-100); Mean Platelet Volume 9.6 fl (7.4-10.4); Monocytes Absolute Auto 1.3 K/mm3 (0.1-0.6); Neutrophils Absolute Auto 5.2 K/mm3 (1.3-6.7); Platelet Count Result 208 k/mm3 (150-375); Red Blood Count 4.58 M/mm3 (4.6-6.20); Red Cell Distribution Width 12.9 % (11.5-14.5); White Blood Count 8.1 K/mm3 (4.5-10.0)
[2024-02-27 08:59] LABS: Anion Gap 8 mmol/L (4-12); Blood Urea Nitrogen 20 mg/dL (9-20); Calcium 8.9 mg/dL (8.4-10.2); Carbon Dioxide 28 mmol/L (22-30); Chloride 98 mmol/L (98-107); Estimated CRCL calculation 49 ml/min; Estimated Glomerular Filt Rate > 60; Glucose 163 mg/dL (65-110); Potassium 3.5 mmol/L (3.4-5.0); Sodium 134 mmol/L (137-145)
[2024-02-27 09:09] VITALS: BP 129/59; PULSE 65; RESP 18; O2SAT 98
[2024-02-27] MEDS: MORPHINE SULFATE (*CRX) 4 MG/ML INJ IV PUSH (09:13)
[2024-02-27] MEDS: GLYCOPYRROLATE INJ (*SP) 0.2 MG/ML VIAL IV PUSH (09:13)
[2024-02-27] MEDS: BENZONATATE 100 MG CAPSULE PO (10:10)
[2024-02-27] MEDS: guaiFENesin/DEXTROMETHORPHAN 10 ML UDC PO (10:10)
== END 2024-02-27 10:16 | disposition home or self-care (01) ==
PROVIDERS: Emergency Provider Student in an Organized Health Care Education/Training Program; PCP Internal Medicine
DX: J36 Peritonsillar abscess (principal); J35.1 Hypertrophy of tonsils; E11.65 Type 2 diabetes mellitus with hyperglycemia; R05.9 Cough, unspecified; Z79.82 Long term (current) use of aspirin; E78.00 Pure hypercholesterolemia, unspecified; I10 Essential (primary) hypertension; Z87.891 Personal history of nicotine dependence; Z20.822 Contact with and (suspected) exposure to COVID-19
CPT/HCPCS: 36415; 70491; 80048; 85025; 87637; 87651; 96365; 96375; 99284; A9270; J1100; J1596; J1885; J2270; Q9967